=== PATIENT | female | born 1970 | race Caucasian/White ===

== ENCOUNTER → 2020-01-12 | Outpatient (CLI) | payer OTHER ==
[~2020-01-12] MED LIST: ACET500 PO; ASCO500 PO; Acidophilus La100 GM PO; CITRICAL; ERRIN; IRON150C PO; LORA10 PO; MULVITMIND PO; Omega 3 Fish O1 EACH PO; Yaz 28 Tablet1 EACH PO; [UNRECOGNIZED DRUG - OTHER]
[2020-01-14 15:11] LABS: HPV 16 Negative (Negative); HPV 18 Negative (Negative); HPV OTHER HR TYPES Negative (Negative)
== END | disposition home or self-care (01) ==
LOC: LAB SHORT 14:36 → LAB 14:36
PROVIDERS: Advanced Practice Midwife
DX: Z01.419 Encounter for gynecological examination (general) (routine) without abnormal findings (principal)
CPT/HCPCS: 87624; G0123

== ENCOUNTER → 2024-06-10 | Outpatient (CLI) | payer OTHER ==
[2024-06-13 13:34] LABS: GIARDIA ANTIGEN BY EIA Negative (Negative)
[2024-06-17 10:42] LABS: OVA AND PARASITE,FECAL INTERP Negative (Negative)
== END | disposition home or self-care (01) ==
LOC: LAB 14:40 → LAB SHORT 14:40 → EDSTATUS 06-10 13:10 → LAB FUT 06-10 13:10
PROVIDERS: Family Medicine
DX: R11.0 Nausea (principal); R19.7 Diarrhea, unspecified
CPT/HCPCS: 87177; 87209; 87329

== ENCOUNTER → 2025-01-18 | Outpatient (CLI) | payer OTHER ==
[2025-01-18 19:50] LABS: Adenovirus Not Detected (NOT DETECT); Bordetella pertussis Not Detected (NOT DETECT); Chlamydophila pneumoniae Not Detected (NOT DETECT); Coronavirus 229E Not Detected (NOT DETECT); Coronavirus HKU1 Not Detected (NOT DETECT); Coronavirus NL63 Not Detected (NOT DETECT); Coronavirus OC43 Not Detected (NOT DETECT); Human Metapneumovirus Not Detected (NOT DETECT); Human Rhinovirus/Enterovirus Not Detected (NOT DETECT); Influenza A/2009-H1 Not Detected (NOT DETECT); Influenza A/H1 Not Detected (NOT DETECT); Influenza A/H3 Not Detected (NOT DETECT); Influenza B Not Detected (NOT DETECT); Mycoplasma pneumoniae Not Detected (NOT DETECT); Parainfluenza Virus 1 Not Detected (NOT DETECT); Parainfluenza Virus 2 Not Detected (NOT DETECT); Parainfluenza Virus 3 Not Detected (NOT DETECT); Parainfluenza Virus 4 Not Detected (NOT DETECT); Respiratory Syncytial Virus Not Detected (NOT DETECT); SARS-Cov-2 (COVID-19), BioFire Not Detected (NOT DETECT)
== END ==
LOC: LAB 11:27 → LAB SHORT 11:27
PROVIDERS: Family Medicine
DX: J02.9 Acute pharyngitis, unspecified (principal); R05.9 Cough, unspecified; R50.9 Fever, unspecified
CPT/HCPCS: 0202U